=== PATIENT | male | born 1960 | race Caucasian/White ===

== ENCOUNTER 2017-04-10 08:17 | Inpatient (IN) | payer MEDICARE ==
[2017-04-10] MEDS ORDERED: RX INFO: IV CONTRAST WAS GIVEN 1 EACH MISC MISCELLANE PRN (08:25)
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
[2017-04-10 09:31] LABS: Basophils # (A) 0.1 k/uL (0-0.2); Basophils % (A) 1 %; CH 29.8; CHCM 32.9; Eosinophils # (A) 0.2 k/uL (0-0.7); Eosinophils % (A) 3 %; HCT 43.6 % (39.0-53.0); HDW 2.45; Luc # (Auto) 0.18; Luc % (Auto) 2; Lymphocytes # (A) 1.6 k/uL (1.0-4.8); Lymphocytes % (A) 20 %; MCH 29.3 pg (25.0-35.0); MCHC 32.1 g/dL (31.0-37.0); MCV 91.1 fL (80.0-100.0); Mean Platelet Volume 6.5; Monocytes # (A) 0.4 k/uL (0-1.0); Monocytes % (A) 4 %; Neutrophils # (A) 5.6 k/uL (1.3-7.7); Neutrophils % (A) 70 %; RBC 4.79 m/uL (4.30-5.90); RDW 14.9 % (11.5-15.5); WBC (Perox) 7.87
[2017-04-10 09:42] LABS: ALT 33 U/L (21-72); AST 20 U/L (17-59); Alcohol <10 mg/dL; Alkaline Phosphatase 43 U/L (38-126); Amylase 120 U/L (30-110); Anion Gap 13 mmol/L; Blood Urea Nitrogen 13 mg/dL (9-20); Calcium 9.3 mg/dL (8.4-10.2); Carbon Dioxide 22 mmol/L (22-30); Chloride 109 mmol/L (98-107); Glucose 138 mg/dL (74-99); Non-African American GFR(MDRD) >60 (>60 ml/min/1.73 sqM); Salicylate <1.0 mg/dL; Sodium 144 mmol/L (137-145); Total Bilirubin 0.7 mg/dL (0.2-1.3); Total Protein 6.6 g/dL (6.3-8.2)
[2017-04-10 09:43] LABS: Acetaminophen <10.0 ug/mL
[2017-04-10] MEDS ORDERED: ONDANSETRON 4 MG/2 ML VIAL IVP STA (09:44)
[2017-04-10 09:49] LABS: Potassium 3.6 mmol/L (3.5-5.1)
[2017-04-10] MEDS ORDERED: ACETAMINOPHEN TAB 325 MG TAB PO STA (10:15)
[2017-04-10] MEDS ORDERED: SODIUM CHLORIDE 0.9% 1,000 ML IV ONE (10:35)
--- NOTE | 2017-04-10 10:55 | CT ---
EXAMINATION TYPE: CT abdomen pelvis w con DATE OF EXAM: 04/10/2017 REFERENCE: NONE HISTORY: Pain/abdominal mass HISTORY: Abdomen distention REFERENCE: NONE CT DLP: 2554.7 mGy Automated exposure control for dose reduction was used. TECHNIQUE: Helical acquisition through the abdomen and pelvis was obtained following the oral ingesti on of without Oral Contrast and following intravenous administration of 100 mL of Omnipaque 300. The data was reformatted in axial, coronal and sagittal projections. FINDINGS: There is a 7.4 mm noncalcified pulmonary nodule in the posterior basal segment of the righ t lower lobe, best seen on image 12. Visualized portions of the lungs are otherwise clear. There is n o pleural or pericardial fluid. The heart is not enlarged. Within the abdomen, there is a 9.63 mm low attenuating lesion in the posterior segment of the right l obe of the liver, best seen on image 24. Several smaller lesions are also noted. Spleen and gallbladd er are normal. Both adrenal glands appear normal. There is a 9.1 mm low attenuating lesion in the inferior aspect of the right kidney. There is a 12 mm lesion in the lower pole of the left kidney. These likely represent cysts. This could BE confirmed w ith ultrasound. The pancreas is normal. There is no significant retroperitoneal, iliac or inguinal adenopathy. The bladder is distended. There is uncomplicated diverticular change involving the sigmoid colon. There is no evidence of diver ticulitis. The appendix is normal. There is a large ventral hernia containing part of the transverse colon. The mouth measures 7.2 cm. No free fluid and no free air is seen. There is mild facet arthropathy as well as hypertrophic spondylosis within the spine. No bony destruc tive lesion is seen. IMPRESSION: 1. SOLITARY PULMONARY NODULE WITHIN THE LUNGS. A CT SCAN OF THE CHEST WOULD BE SUGGESTED ON AN OUTPAT IENT BASIS. 2. SEVERAL LOW ATTENUATING LESIONS WITHIN THE LIVER AND KIDNEYS. THESE ARE LIKELY CYSTS. THIS COULD B E CONFIRMED WITH ULTRASOUND. 3. LARGE VENTRAL HERNIA CONTAINING PART OF THE TRANSVERSE COLON WITH A MOUTH MEASURING 7.2 CM. 4. MILD DEGENERATIVE CHANGE WITHIN THE SPINE. 5. UNCOMPLICATED DIVERTICULOSIS OF THE COLON.
[2017-04-10 12:04] LABS: Appearance,Urine Cloudy (Clear); Bacteria,Urine Occasional /hpf; Bilirubin,Urine Negative (Negative); Glucose,Urine (UA) Negative (Negative); Ketones,Urine Negative (Negative); Leukocyte Esterase,Urine Large (Negative); Mucus,Urine Rare /hpf; Nitrite,Urine Negative (Negative); PH, Urine 6.5 (5.0-8.0); Particle Count 29794; Protein,Urine Negative (Negative); RBC,Urine 2 /hpf (0-5); Specific Gravity,Urine 1.014 (1.001-1.035); Squamous Epithelial Cell,Urine 3 /hpf (0-4); UA Billing (MACRO vs. MICRO) MICRO; Urobilinogen,Urine <2.0 mg/dL (<2.0); WBC,Urine 26 /hpf (0-5)
[2017-04-10] MEDS ORDERED: LEVOFLOXACIN 500 MG TAB PO STA (12:10)
[2017-04-10 15:10] VITALS: BMI 34.7
[2017-04-10] MEDS ORDERED: MAG HYDROX/AL HYDROX/SIMETH 30 ML CUP PO PRN (15:53)
[2017-04-10] MEDS ORDERED: LORazepam 1 MG TAB PO PRN (15:53)
[2017-04-10] MEDS ORDERED: ACETAMINOPHEN TAB 325 MG TAB PO PRN (15:53)
[2017-04-10] MEDS ORDERED: MAGNESIUM HYDROXIDE 2,400 MG/10 ML CUP PO PRN (15:53)
[2017-04-10] MEDS ORDERED: ZIPRASIDONE 20 MG VIAL IM PRN (15:53)
[2017-04-10] MEDS: SYMBICORT 80-4.5 MCG INHALER INHALATION SCH (19:26)
[2017-04-10] MEDS ORDERED: traZODone HCL 100 MG TAB PO PRN (21:00)
[2017-04-10] MEDS: ZIPRASIDONE 60 MG CAP PO SCH (21:27)
[2017-04-10] MEDS: LITHIUM CARBONATE 300 MG CAP PO SCH (21:27)
[2017-04-11] MEDS ORDERED: LEVOTHYROXINE 112 MCG TAB PO SCH (06:30)
[2017-04-11] MEDS: SYMBICORT 80-4.5 MCG INHALER INHALATION SCH ×2 (07:43→21:28)
[2017-04-11 09:25] LABS: Anion Gap 11 mmol/L; Blood Urea Nitrogen 11 mg/dL (9-20); Calcium 9.5 mg/dL (8.4-10.2); Carbon Dioxide 23 mmol/L (22-30); Chloride 108 mmol/L (98-107); Glucose 123 mg/dL (74-99); Non-African American GFR(MDRD) >60 (>60 ml/min/1.73 sqM); Potassium 3.8 mmol/L (3.5-5.1); Sodium 142 mmol/L (137-145)
[2017-04-11] MEDS: LITHIUM CARBONATE 300 MG CAP PO SCH ×2 (09:48→21:14)
[2017-04-11] MEDS: ZIPRASIDONE 60 MG CAP PO SCH ×2 (09:48→21:14)
[2017-04-11] MEDS: ATORVASTATIN 40 MG TAB PO SCH (09:48)
[2017-04-11] MEDS: LOSARTAN 50 MG TAB PO SCH (09:48)
[2017-04-11] MEDS: ALBUTEROL INHALER 60 PUFF/8 GM INHALER INHALATION PRN (11:25)
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
--- NOTE | 2017-04-11 15:31 | P.MDCNMH ---
History of Present Illness H&P Date: 04/11/17 This is a 56-year-old male with a previous medical history significant for hypertension and hypertensive cardio vascular disease with left ventricular hypertrophy, history of obesity with obstructive sleep apnea and obesity hypoventilation syndrome, history of ventral hernia, he was diagnosed recently on 03/13/2017 of having a vocal cord cancer he ended up going for surgery by Dr. 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 Apparently the patient was seen and evaluated by the mental health unit nurse and he was admitted to the hospital for evaluation and to the mental health unit for bipolar disorder unspecified. Review of Systems Constitutional: Denies anorexia, Denies chronic headaches, Denies fever, Denies malaise Eyes: denies blurred vision, denies bulging eye, denies decreased vision, denies diplopia Ears, nose, mouth and throat: Reports sore throat, Reports voice changes, Denies dysphagia, Denies neck lump Cardiovascular: Reports high blood pressure, Denies chest pain, Denies decreased exercise tolerance, Denies rapid heart beat, Denies shortness of breath, Denies syncope Respiratory: Reports cough with sputum, Reports sleep apnea, Denies congestion, Denies cough, Denies home oxygen, Denies snoring, Denies wheezing Gastrointestinal: Reports abdominal pain, Reports nausea, Denies bloating, Denies change in bowel habits, Denies coffee ground emesis, Denies heartburn, Denies hematemesis, Denies hematochezia, Denies melena, Denies vomiting Genitourinary: Denies dysuria, Denies nocturia, Denies polyuria Musculoskeletal: Denies myalgias Musculoskeletal: right: ankle pain, ankle stiffness, ankle swelling, left: hip stiffness, hip swelling, absent: elbow pain, elbow stiffness, elbow swelling, foot pain, foot stiffness, foot swelling, hand pain, hand stiffness, hand swelling, hip pain, knee pain, knee stiffness, knee swelling, shoulder pain, shoulder stiffness, shoulder swelling, wrist pain, wrist stiffness, wrist swelling Integumentary: Denies pruritus, Denies rash Neurological: Denies numbness, Denies weakness Psychiatric: Reports anxiety, Reports depression, Denies sadness/tearfulness, Denies sleep disturbances, Denies suicidal ideation Endocrine: Denies fatigue, Denies weight change Past Medical History Past Medical History: Asthma, Cancer (She was diagnosed with vocal Cord cancer and had surgery on it 03/13/2017.), Hyperlipidemia, Hypertension, Osteoarthritis (OA), Prostate Disorder (Large prostate with urinary retention.) , Sleep Apnea/CPAP/BIPAP Additional Past Medical History / Comment(s): Surgery 03/23/2017 Vocal Tumor removed, ventral hernia History of Any Multi-Drug Resistant Organisms: None Reported Past Surgical History: Orthopedic Surgery Additional Past Surgical History / Comment(s): R ankle, open reduction and internal fixation, left femur ORIFx2, hammertoe surgery 2. Past Anesthesia/Blood Transfusion Reactions: No Reported Reaction Past Psychological History: Bipolar Smoking Status: Never smoker Additional Past Alcohol Use History / Comment(s): quit drinking 9 years ago Past Drug Use History: Marijuana Additional Drug Use History / Comment(s): medical marijuana 1 month - Past Family History Father Family Medical History: Cancer (Father is 78-year-old his dying from stage IV lung cancer.) Additional Family Medical History / Comment(s): Lung Cancer Mother Family Medical History: COPD (Mother at age of 70 from emphysema.) Brother(s) Family Medical History: Neurologic Disorder (He shouldn't has 2 brothers one of them with MS and the other one is okay) Sister(s) Family Medical History: No Reported History (Had one stepsister who couple years ago.) Medications and Allergies Home Medications Medication Instructions Recorded Confirmed Type Albuterol Sulfate [Proair Hfa] 1 puff INHALATION RT-DAILY PRN 04/10/17 04/10/17 History Atorvastatin [Lipitor] 40 mg PO DAILY 04/10/17 04/10/17 History HYDROcodone/APAP 10-325MG [[place] 1 tab PO QID PRN 04/10/17 04/10/17 History 10-325] Levothyroxine Sodium [Synthroid] 112 mcg PO DAILY 04/10/17 04/10/17 History [place] Carbonate 600 mg PO BID 04/10/17 04/10/17 History Losartan Potassium [Cozaar] 50 mg PO DAILY 04/10/17 04/10/17 History Mometasone/Formoterol [Dulera 100 1 puff INHALATION RT-BID 04/10/17 04/10/17 History Mcg/5 Mcg Inhaler] Ziprasidone HCl [Geodon] 60 mg PO BID 04/10/17 04/10/17 History traZODone HCL [Desyrel] 100 mg PO HS PRN 04/10/17 04/10/17 History Allergies Allergy/AdvReac Type Severity Reaction Status Date / Time adhesive tape Allergy Rash/Hives Verified 04/10/17 17:29 lisinopril Allergy Unknown Verified 04/10/17 10:42 Penicillins Allergy Unknown Verified 04/10/17 10:42 Physical Exam Vitals: Vital Signs Temp Pulse Pulse Resp BP BP Pulse Ox 04/11/17 00:45 98.0 F 71 18 129/77 04/10/17 14:55 80 16 139/89 04/10/17 13:56 97.6 F 71 16 129/69 99 Intake and Output 04/10/17 04/11/17 04/11/17 22:59 06:59 14:59 Intake Total 1360 Output Total 150 Balance 1210 Intake: Oral 1360 Output: Urine 150 - Constitutional General appearance: no acute distress, obese - EENT Eyes: anicteric sclerae, EOMI, PERRLA, no ptosis, no scleral icterus ENT: hearing grossly normal, NA/AT, normal oropharynx, no tonsillar exudates Ears: bilateral: bulging - Neck Neck: normal ROM, no other, no stridor, no thyromegaly Carotids: bilateral: upstroke delayed Thyroid: bilateral: normal size - Respiratory Respiratory: bilateral: diminished, negative: dullness, rales, rhonchi, wheezing , prolonged expiration, prolonged inspiration - Cardiovascular Rhythm: regular Heart sounds: normal: S1, S2 Abnormal Heart Sounds: systolic murmur - Gastrointestinal General gastrointestinal: normal bowel sounds, soft, no splenomegaly, no tenderness, ventral hernia - Integumentary Integumentary: normal, normal turgor - Neurologic Neurologic: CNII-XII intact - Musculoskeletal Musculoskeletal: generalized weakness, strength equal bilaterally - Psychiatric Psychiatric: A&O x's 3, no appropriate affect, no intact judgment & insight Cranial Nerve Examination - Cranial Nerves Cranial Nerve I- Olfactory: Intact Cranial Nerve II- Optic: Intact Cranial Nerve III- Oculomotor: Intact Cranial Nerve IV- Trochlear: Intact Cranial Nerve V- Trigeminal: Intact Cranial Nerve - Abducens: Intact Cranial Nerve VII- Facial: Intact Cranial Nerve VIII- Auditory: Intact Cranial Nerve IX- Glossopharyngeal: Intact Cranial Nerve X- Vagus: Intact Cranial Nerve XI- Accessory: Intact Cranial Nerve XII- Hypoglossal: Intact Results CBC & Chem 7: 04/10/17 09:00 04/11/17 07:29 Labs: Abnormal Lab Results - Last 24 Hours (Table) 04/10/17 04/11/17 Range/Units 11:44 07:29 Chloride 108 H (98-107) mmol/L Glucose 123 H (74-99) mg/dL TSH 36.800 H (0.465-4.680) mIU/L Ur Leukocyte Esterase Large H (Negative) Urine WBC 26 H (0-5) /hpf Urine WBC Clumps Occasional H (None) /hpf Urine Bacteria Occasional H (None) /hpf Urine Mucus Rare H (None) /hpf U Marijuana (THC) Screen Detected H (NotDetected) Microbiology - Last 24 Hours (Table) 04/10/17 11:44 Urine Culture - Preliminary Urine,Catheterized Assessment and Plan Plan: Assessment and plan: 1. Bipolar disorder. Unspecified. Admit the patient mental health unit. Continue patient on lithium 600 mg orally twice every day, continue Geodon 60 mg orally twice every day. 2. Hypertension and hypertensive cardio vascular disease. Continue losartan 50 mg orally once every day. 3. Hypothyroidism. Continue patient on Synthroid and increase the dose to 125 g orally once every day. 4. Hyperlipidemia. Continue patient on Lipitor 40 mg orally once every day. 5. Ventral hernia. Stable at this point in time. 6. Gynecomastia. Stable at this point in time. 7. Recent diagnosis of vocal cord cancer status post surgery according to him we will start the patient on Cepacol lozenges. 8. Complicated UTI with Seth catheter due to urinary retention. Start the patient on Flomax 0.4 mg orally once every day, discontinue Seth catheter, start the patient on oral ceftin 500 mg orally twice every day for 10 days. 9. Thank you for the consult we will follow with you.
[2017-04-11] MEDS: LORazepam 0.5 MG TAB PO SCH ×2 (17:55→21:14)
[2017-04-11] MEDS: TAMSULOSIN 0.4 MG CAP.ER.24H PO SCH (17:55)
[2017-04-11] MEDS: CEFUROXIME 250 MG TAB PO SCH (21:14)
[2017-04-12] MEDS: LEVOTHYROXINE 125 MCG TAB PO SCH (06:20)
[2017-04-12] MEDS: SYMBICORT 80-4.5 MCG INHALER INHALATION SCH ×2 (08:25→20:53)
[2017-04-12] MEDS: LORazepam 0.5 MG TAB PO SCH ×3 (08:28→20:48)
[2017-04-12] MEDS: ZIPRASIDONE 60 MG CAP PO SCH (08:28)
[2017-04-12] MEDS: CEFUROXIME 250 MG TAB PO SCH ×2 (08:28→20:47)
[2017-04-12] MEDS: LITHIUM CARBONATE 300 MG CAP PO SCH ×2 (08:29→20:47)
[2017-04-12] MEDS: ATORVASTATIN 40 MG TAB PO SCH (08:29)
[2017-04-12] MEDS: LOSARTAN 50 MG TAB PO SCH (08:29)
[2017-04-12] MEDS ORDERED: ZIPRASIDONE 20 MG CAP PO STA (12:36)
--- NOTE | 2017-04-12 12:45 | P.PN ---
Progress Note - Text INTERVERAL HISTORY: Patient discussed at treatment team meeting, review of chart , met with patient. RN reported patient asked her to drive by an address and tell his brother that he is here. Attempted to contact his psychiatrist in [place] yesterday, however he was not in the clinic on Mondays. Patient gave verbal VERONICA yesterday to Dr. Dietrich staff to allow a discussion. Spoke to Dr George for about 15 minutes, patient has not been seen since Oct 2015, TSH 16, dx Bipolar disorder, I, severe, lithium 600mg bid, Geodon 80m bid , non compliant with refills. ETOH servere, in remission. Laryngeal CA, had surgery March 29, 2017 for laryngeal stenosis. Reviewed my phone call with Dr. Brown with patient, patient disagrees with the surgery date, however it matched what he said yesterday of having surgery 10 days ago. Reviewed his doses of medication and that he had not seen Dr. Marin for over a year and a half and that Dr. Marin said that he was noncompliant with refilling his medications, patient states that his medications, stated, costs $ 400 per month and he couldn't afford Patient reports he slept well. Patient agrees to allow me to increase his Geodon to the dose that Dr. Marin had been prescribing 80 mg twice a day, will give 20 mg after lunch today. patient continues to believe that the growth in his abdominal area is due to PCB's, continues to be paranoid, there was no report of paranoid ideation today however when speaking about discharge he mentioned something about the hotel that he was at and he is paranoid. MENTAL STATUS EXAM: Patient alert and oriented 3, good eye contact, fair groomed in street clothing. Speech normal volume, rate and production. Logical but circumstantial, over detailed, thought process. No VERÓNICA, no FOI. [No TB/TW/TI] Denied auditory and visual hallucinations. + paranoid ideation, ++delusions , + IOR. Memory grossly intact Cognition average Mood neutral, affect constricted, congruent with mood. Denies suicidal ideation, denies homicidal ideation. Insight partial; Judgment grossly intact for treatment purposes ]. IMPRESSIONS: 56-year-old gentleman with a past history of bipolar type I, severe, not in treatment for over a year and a half, noncompliant with medications and appointments. Today patient appeared coherent and logical compared to yesterday, there is still circumstantial thought process, and there is still a hint of paranoid ideation and there is still the delusional i.e. deviation of the PCBs causing the abdominal growth. We still do not have any verification that there is a father or brother here. Psychosis improving Psychosis. Rule out bipolar disorder, unspecified PLAN: Continue inpatient psychiatric admission, for safety and for diagnostic clarification. Suicide precautions 15 minute checks. Increase Geodon 80 mg twice a day, give 20 mg now SW will call , Ayse, if patient allows. We would like to contact his brother/father but patient says they do not have any phones that are turned on. Length of stay 2 days.
[2017-04-12] MEDS: TAMSULOSIN 0.4 MG CAP.ER.24H PO SCH (19:01)
[2017-04-12] MEDS: ZIPRASIDONE 80 MG CAP PO SCH (20:48)
[2017-04-12] MEDS: ALBUTEROL INHALER 60 PUFF/8 GM INHALER INHALATION PRN (20:53)
[2017-04-13] MEDS: LEVOTHYROXINE 125 MCG TAB PO SCH ×2 (05:55→06:26)
[2017-04-13] MEDS: ALBUTEROL INHALER 60 PUFF/8 GM INHALER INHALATION PRN (08:26)
[2017-04-13] MEDS: SYMBICORT 80-4.5 MCG INHALER INHALATION SCH ×2 (08:26→21:29)
[2017-04-13] MEDS: CEFUROXIME 250 MG TAB PO SCH ×2 (09:26→20:41)
[2017-04-13] MEDS: ZIPRASIDONE 80 MG CAP PO SCH ×2 (09:26→20:44)
[2017-04-13] MEDS: LORazepam 0.5 MG TAB PO SCH ×3 (09:26→20:41)
[2017-04-13] MEDS: LOSARTAN 50 MG TAB PO SCH (09:26)
[2017-04-13] MEDS: ATORVASTATIN 40 MG TAB PO SCH (09:26)
[2017-04-13] MEDS: LITHIUM CARBONATE 300 MG CAP PO SCH ×2 (09:26→20:41)
[2017-04-13 09:31] VITALS: RESP 18
--- NOTE | 2017-04-13 11:18 | P.DS ---
Providers Date of admission: 04/10/17 14:02 Expected date of discharge: 04/13/17 Attending physician: Audra Hopper MD Consults: 04/10/17 15:53 Consult Physician Routine Consulting Provider: Vinny Wynn Consult Reason/Comments: H & P and medical care, Seth cath eval, Do you want consulting provider notified?: Yes Primary care physician: Physician Nonstaff Hospital Course: ADMISSION HISTORY: Patient presented to our emergency room with a convoluted confusing history. It was difficult to understand and make sense of what he was saying due to the many conflicting statements. Essentially it was understood that he had left [place] in the middle of the night to come out to [place] to see his dying father. He was staying at a hotel here that reportedly kicked him out but he could not give us any reason as to why. He did report that he had recently received a letter from [place] stating that he had been exposed to PCB's, and that he was to remain isolated, and he was not urinating because he would contaminate the earth and the water. He was catheterized in the emergency room. HOSPITAL COURSE: Patient continued to provide confusing information conflicting dates. He reported that he had left [place] in the middle of the night but then got stuck in [place] due to running out of gas, reported he had surgery [employer] but stated he arrived here on March 18. He reported he only needed hospice due to his PCB exposure, after being here on the unit he claimed he would be happy to stay here rather than going to hospice. We could not contact anyone to give us any verifying information patient refused to give numbers to his brother/father who he states is dying and in hospice. Patient continued to report that he had exposures to PCB and he has a large ventral hernia, he would raise his shirt and grab it, shake it saying "PCB caused this" His thought process was illogical, incoherent with delusions regarding PCB and ventral hernia, and the paranoid ideation that he expressed regarding the comfort in [facility] where he was staying. We eventually were able to contact a psychiatrist who had seen him in the past, Dr. George, he stated that he had seen him in October 2015, and that he was noncompliant with appointments and medication. Patient was diagnosed with bipolar disorder type I severe medications included Geodon 80 mg twice a day lithium 600 mg twice a day. Patient gave us a different amount of the Geodon so we increased it to the 80 mg twice a day. By the second day patient's thought process was already improved he was able to understand that he could not have arrived here on March 18 but had surgery 10 days prior to his admission here. He was also able to contact his brother who stated he was going to come in for a family meeting and patient believed that his brother was going to allow him to come to stay with he and his ailing father. At no time did patient ever express suicidal ideation, no homicidal ideation. His thought process cleared up he was coherent logical and goal directed. MENTAL STATUS EXAM: Patient alert and oriented 3, good eye contact, well groomed in street clothing. Speech normal volume, rate and production. Coherent, logical and goal directed thought process. No VERÓNICA, no FOI. [No TB/TW/ TI] Denied auditory and visual hallucinations. No paranoid ideation, delusions , IOR. Memory grossly intact Cognition average Mood euthymic affect full range normal intensity, congruent with mood. Denies suicidal ideation, denies homicidal ideation. Insight [partial]; Judgment grossly intact for treatment purposes ]. IMPRESSIONS: 56-year-old gentleman with a past history of bipolar disorder, type I most likely manic, delusional. Has not had treatment for at least a year and a half responded well to restarting of lithium and Geodon. Family meeting will take place today and if brother is in agreement patient will go live with them area if not the patient is safe to be discharged and he has funds to be able to find housing. That is his plan to relocate here to [place]. ADMISSION DIAGNOSES: Psychosis. Rule out bipolar disorder, unspecified DISCHARGE DIAGNOSES: Bipolar type I MRE manic PLAN: Discharged today, patient will either go to his family's house or he will find housing as he has funds to manage this. We will set up a primary care doctor's appointment with him we will give him a week's supply of his medications. Patient stated that he would prefer to use his own health insurance to find a psychiatrist again we will give a 7 day supply. Pertinent Studies: none Procedures: none Patient Condition at Discharge: Stable Plan - Discharge Summary New Discharge Prescriptions: New Albuterol Inhaler [Ventolin Hfa Inhaler] 1 puff INHALATION RT-DAILY PRN #1 puff PRN Reason: Shortness Of Breath Atorvastatin [Lipitor] 40 mg PO DAILY #7 tab Cefuroxime [Ceftin] 500 mg PO BID #14 tab Levothyroxine Sodium [Synthroid] 125 mcg PO DAILY@30 #7 tab [place] Carbonate 600 mg PO BID #14 cap LORazepam [Ativan] 0.5 mg PO BID PRN #10 tab PRN Reason: Agitation Or Acute Anxiety Tamsulosin [Flomax] 0.4 mg PO PC-SUPPER #7 cap Ziprasidone [Geodon] 80 mg PO BID #14 cap Continue HYDROcodone/APAP 10-325MG [[place] 10-325] 1 tab PO QID PRN PRN Reason: Pain Losartan Potassium [Cozaar] 50 mg PO DAILY #7 Mometasone/Formoterol [Dulera 100 Mcg/5 Mcg Inhaler] 1 puff INHALATION RT- BID #1 traZODone HCL [Desyrel] 100 mg PO HS PRN #7 PRN Reason: SLEEP Discontinued Albuterol Sulfate [Proair Hfa] 1 puff INHALATION RT-DAILY PRN PRN Reason: Shortness Of Breath Levothyroxine Sodium [Synthroid] 112 mcg PO DAILY Atorvastatin [Lipitor] 40 mg PO DAILY Ziprasidone HCl [Geodon] 60 mg PO BID [place] Carbonate 600 mg PO BID Discharge Medication List HYDROcodone/APAP 10-325MG [[place] 10-325] 1 tab PO QID PRN 04/10/17 [History] Albuterol Inhaler [Ventolin Hfa Inhaler] 1 puff INHALATION RT-DAILY PRN #1 puff 04/13/17 [Rx] Atorvastatin [Lipitor] 40 mg PO DAILY #7 tab 04/13/17 [Rx] Cefuroxime [Ceftin] 500 mg PO BID #14 tab 04/13/17 [Rx] LORazepam [Ativan] 0.5 mg PO BID PRN #10 tab 04/13/17 [Rx] Levothyroxine Sodium [Synthroid] 125 mcg PO DAILY@30 #7 tab 04/13/17 [Rx] [place] Carbonate 600 mg PO BID #14 cap 04/13/17 [Rx] Losartan Potassium [Cozaar] 50 mg PO DAILY #7 04/13/17 [Rx] Mometasone/Formoterol [[place] 100 Mcg/5 Mcg Inhaler] 1 puff INHALATION RT-BID # 1 04/13/17 [Rx] Tamsulosin [Flomax] 0.4 mg PO PC-SUPPER #7 cap 04/13/17 [Rx] Ziprasidone [Geodon] 80 mg PO BID #14 cap 04/13/17 [Rx] traZODone HCL [Desyrel] 100 mg PO HS PRN #7 04/13/17 [Rx] Follow up Appointment(s)/Referral(s): None,Stated [REFERRING] - 1-2 days Patient Instructions/Handouts: Bipolar Disorder (DC), Brief Psychotic Disorder (DC), Suicide Prevention for Adults (DC) Activity/Diet/Wound Care/Special Instructions: No alcohol or street drugs, activity as tolerated, diet as tolerated, remove firearms from home. Follow up with outpatient provider as set up at time of discharge, follow up with PCP in one to two days. Call crisis line or [phone] if having thoughts of hurting himself or anyone else. Discharge Disposition: HOME SELF-CARE
[2017-04-13] MEDS: TAMSULOSIN 0.4 MG CAP.ER.24H PO SCH (17:57)
[2017-04-14] MEDS: LEVOTHYROXINE 125 MCG TAB PO SCH (06:24)
[2017-04-14 07:08] VITALS: TEMP 98.6
[2017-04-14] MEDS: ALBUTEROL INHALER 60 PUFF/8 GM INHALER INHALATION PRN (08:05)
[2017-04-14] MEDS: SYMBICORT 80-4.5 MCG INHALER INHALATION SCH (08:07)
[2017-04-14] MEDS: CEFUROXIME 250 MG TAB PO SCH (08:52)
[2017-04-14] MEDS: ZIPRASIDONE 80 MG CAP PO SCH (08:52)
[2017-04-14] MEDS: LORazepam 0.5 MG TAB PO SCH (08:53)
[2017-04-14] MEDS: LOSARTAN 50 MG TAB PO SCH (08:53)
[2017-04-14] MEDS: ATORVASTATIN 40 MG TAB PO SCH (08:53)
[2017-04-14] MEDS: LITHIUM CARBONATE 300 MG CAP PO SCH (08:53)
[2017-04-14 08:59] VITALS: BP 121/68; PULSE 91
--- NOTE | 2017-04-14 10:40 | P.PN ---
Progress Note - Text INTERVERAL HISTORY: Was discussed in treatment team meeting today, record review , met with patient Overhead page patient he did not come to the desk, skilled nursing professional went to his room and he was asleep. Patient eventually came we went to my office. Patient states he is doing great does not bring up the family meeting that occurred yesterday but when asked about it he stated "I don't know where my brother is coming from". Patient states that he doesn't understand why his brother saying that he trashed the house, states he took all of his stuff with him when he went to the hotel. Patient states that he is not bothered if he cannot live with his father, that he has enough money to secure an apartment with the first and last month plus a security deposit. He says he'll just go to a hotel from here and then begin to look for an apartment. He is hopeful below that he might be able to stay at his father's house. Patient states that he slept very well last night, the best that he has slept in weeks. Patient denies suicidal ideation, he is never reported this and has none and his past history. Patient denies auditory/visual hallucinations. No clear evidence of paranoia. MENTAL STATUS EXAM: Patient alert and oriented 3, good eye contact, fair groomed in street clothing. Speech normal volume, rate and production. Logical but circumstantial, over detailed, thought process. No VERÓNICA, no FOI. [No TB/TW/TI] Denied auditory and visual hallucinations. no paranoid ideation, no delusions , no IOR. Memory grossly intact Cognition average Mood euthymic, affect full range normal intensity, congruent with mood. Denies suicidal ideation, denies homicidal ideation. Insight partial; Judgment grossly intact for treatment purposes ]. Psychosis. Rule out bipolar disorder, unspecified PLAN: See original discharge for 04/13/17 Discharge today, brothers agree to him coming home with them.
== END 2017-04-14 12:00 | disposition home or self-care (01) | DRG 885 ==
LOC: EC 08:17 → 3MHU 14:02
PROVIDERS: ADMIT Psychiatry & Neurology Addiction Medicine; ATTEND Psychiatry & Neurology Addiction Medicine
DX: F31.2 Bipolar disorder, current episode manic severe with psychotic features (principal); Z91.19 Patient's noncompliance with other medical treatment and regimen; F12.90 Cannabis use, unspecified, uncomplicated; K43.9 Ventral hernia without obstruction or gangrene; Z85.21 Personal history of malignant neoplasm of larynx; Z79.899 Other long term (current) drug therapy
CPT/HCPCS: 36415; 51798; 74177; 80048; 80053; 80178; 80306; 80320; 81001; 82075; 82140; 82150; 83520; 83690; 84439; 84443; 84481; 85025; 87086; 94640; 96361; 96374; 99285

== ENCOUNTER → 2017-07-14 | Outpatient (CLI) | payer MEDICARE ==
--- NOTE | 2017-07-14 13:25 | XR ---
EXAMINATION TYPE: XR chest 2V DATE OF EXAM: 07/14/2017 COMPARISON: CT abdomen pelvis dated 04/10/2017 HISTORY: Lymphoma. Chest pain. TECHNIQUE: Frontal and lateral views of the chest are obtained. FINDINGS: There is no focal air space opacity, pleural effusion, or pneumothorax seen. The cardiac silhouette size is upper limits of normal size. The osseous structures are intact. Mild degenerativ e changes of the thoracic spine are noted. The previously seen solitary pulmonary nodule within the l inga bases on a CT abdomen pelvis is not visualized given its small size. Again CT thorax could be per formed for further evaluation. IMPRESSION: No acute cardiopulmonary process. Nonvisualization of the known solitary pulmonary nodul e seen on the prior CT of 04/10/2017. Again CT thorax could be performed for further evaluation.
== END | disposition home or self-care (01) ==
LOC: RADXRMAIN 11:42
PROVIDERS: ATTEND Family Medicine
DX: R91.1 Solitary pulmonary nodule (principal); R07.9 Chest pain, unspecified
CPT/HCPCS: 71020